=== PATIENT | male | born 1935 | race Caucasian/White ===

== ENCOUNTER 2017-07-24 08:36 | Inpatient (IN) | payer MEDICARE, OTHER ==
[2017-07-24] MEDS: ONDANSETRON 4 MG INJ IV (09:26)
[2017-07-24] MEDS: morphine 4 MG/ML VIAL IV ×2 (09:26→13:05)
[2017-07-24] MEDS: SOD CHLORIDE 0.9% 500 ML IV (09:29)
[2017-07-24 09:34] LABS: ADD MAN DIFF? NO
[2017-07-24 09:37] LABS: WHITE BLOOD COUNT 10.5 10^3/ul (4.8-10.8)
[2017-07-24 09:37] LABS: BASOPHILS % 0.4 % (0.0-2.0); EOSINOPHILS % 0.1 % (0.0-7.0); HEMOGLOBIN 12.4 g/dl (14.0-18.0); LYMPHOCYTES % 9.3 % (15.0-51.0); MEAN CORPUSCULAR HEMOGLOBIN 31.2 pg (29.0-33.0); MEAN CORPUSCULAR HGB CONC 33.5 g/dl (32.0-37.0); MONOCYTE # 0.3 10^3/ul (0.3-0.9); MONOCYTES % 2.4 % (0.0-11.0); NEUTROPHIL # 9.2 10^3/ul (1.6-7.5); NEUTROPHILS % 87.4 % (39.0-77.0); PLATELET COUNT 183 10^3/UL (140-415); RED BLOOD COUNT 3.98 10^6/ul (4.70-6.10)
[2017-07-24 09:41] LABS: ADD UMIC NO; UR ASCORBIC ACID NEGATIVE (NEGATIVE); UR BILIRUBIN (Dip) NEGATIVE (NEGATIVE); UR BLOOD (Dip) NEGATIVE (NEGATIVE); UR CLARITY CLEAR (CLEAR); UR COLOR STRAW (YELLOW); UR GLUCOSE (Dip) 2+ mg/dL (NEGATIVE); UR KETONES (Dip) NEGATIVE (NEGATIVE); UR LEUKOCYTE ESTERASE (Dip) NEGATIVE Leu/ul (NEGATIVE); UR NITRITE (Dip) NEGATIVE (NEGATIVE); UR SPECIFIC GRAVITY (Dip) 1.014 (1.003-1.030); UR TOTAL PROTEIN (Dip) NEGATIVE (NEGATIVE); UR UROBILINOGEN (Dip) NEGATIVE (NEGATIVE)
[2017-07-24 09:59] LABS: INR 0.94; PROTIME 12.7 Sec (11.9-14.9)
[2017-07-24 10:01] LABS: ALANINE AMINOTRANSFERASE 24 IU/L (13-69); ALBUMIN 4.8 g/dl (3.3-4.9); ALBUMIN/GLOBULIN RATIO 1.33; ALKALINE PHOSPHATASE 42 IU/L (42-121); ANION GAP 21 (8-16); ASPARTATE AMINO TRANSFERASE 21 IU/L (15-46); BILIRUBIN,INDIRECT 0.3 mg/dl (0-1.1); BILIRUBIN,TOTAL 0.3 mg/dl (0.2-1.3); BLOOD UREA NITROGEN 25 mg/dl (7-20); CALCIUM 9.7 mg/dl (8.4-10.2); CARBON DIOXIDE 22 mmol/L (21-31); CHLORIDE 107 mmol/L (97-110); CREATININE 1.29 mg/dl (0.61-1.24); GLUCOSE 160 mg/dl (70-220); LIPASE 83 U/L (23-300); POTASSIUM 3.9 mmol/L (3.5-5.1); SODIUM 146 mmol/L (135-144); TOTAL PROTEIN 8.4 g/dl (6.1-8.1)
[2017-07-24 10:16] LABS: TROPONIN-I < 0.012 ng/ml (0.00-0.12)
[2017-07-24] MEDS: AMPICILLIN/SULB 3 GM/NS (PMX) 100 ML IVPB (12:07)
[2017-07-24] MEDS ORDERED: ACETAMINOPHEN 325 MG TAB PO ×2 (12:30→13:00)
[2017-07-24] MEDS ORDERED: ONDANSETRON 4 MG INJ IV ×2 (12:30→13:00)
[2017-07-24] MEDS ORDERED: morphine 2 MG INJ IV (13:00)
[2017-07-24] MEDS ORDERED: HYDROCODONE/APAP (5/325) TAB PO (13:00)
[2017-07-24] MEDS ORDERED: ACETAMINOPHEN 650 MG SUPP PR (13:00)
[2017-07-24] MEDS ORDERED: NACL 0.9% 3 ML SYG IV (13:00)
[2017-07-24] MEDS ORDERED: MAGNESIUM HYDROXIDE 30ML CUP PO (13:00)
[2017-07-24] MEDS ORDERED: BISACODYL 10 MG SUPP PR (13:00)
[2017-07-24] MEDS: SOD CHLORIDE 0.9% 1,000 ML IV ×2 (14:00→22:57)
[2017-07-24] MEDS ORDERED: hydrALAzine 20 MG INJ IV (14:30)
[2017-07-24] MEDS: HYDROmorphONE 0.5 MG/0.5 ML SYG IV ×3 (15:26→20:57)
[2017-07-24 16:38] LABS: ALANINE AMINOTRANSFERASE 22 IU/L (13-69); ALBUMIN 4.9 g/dl (3.3-4.9); ALKALINE PHOSPHATASE 42 IU/L (42-121); ASPARTATE AMINO TRANSFERASE 30 IU/L (15-46); BILIRUBIN,INDIRECT 0.5 mg/dl (0-1.1); BILIRUBIN,TOTAL 0.5 mg/dl (0.2-1.3); TOTAL PROTEIN 8.7 g/dl (6.1-8.1)
[2017-07-24] MEDS: HYDROCODONE/APAP (5/325) TAB PO (23:11)
[2017-07-25] MEDS: HYDROCODONE/APAP (5/325) TAB PO (01:14)
[2017-07-25 05:38] LABS: ADD MAN DIFF? NO
[2017-07-25 05:40] LABS: WHITE BLOOD COUNT 13.9 10^3/ul (4.8-10.8)
[2017-07-25 05:40] LABS: BASOPHILS % 0.3 % (0.0-2.0); EOSINOPHILS % 0.1 % (0.0-7.0); HEMATOCRIT 33.6 % (42.0-52.0); HEMOGLOBIN 11.2 g/dl (14.0-18.0); LYMPHOCYTES # 1.1 10^3/ul (0.8-2.9); LYMPHOCYTES % 8.1 % (15.0-51.0); MEAN CORPUSCULAR HEMOGLOBIN 30.8 pg (29.0-33.0); MEAN CORPUSCULAR HGB CONC 33.3 g/dl (32.0-37.0); MEAN CORPUSCULAR VOLUME 92.3 fl (82.0-101.0); MEAN PLATELET VOLUME 11.2 fl (7.4-10.4); MONOCYTE # 0.7 10^3/ul (0.3-0.9); MONOCYTES % 5.1 % (0.0-11.0); PLATELET COUNT 157 10^3/UL (140-415); RED BLOOD COUNT 3.64 10^6/ul (4.70-6.10); RED CELL DISTRIBUTION WIDTH 13.2 % (11.5-14.5)
[2017-07-25] MEDS: PANTOPRAZOLE 40 MG INJ IV (05:47)
[2017-07-25 06:00] LABS: INR 1.27; PROTIME 16.1 Sec (11.9-14.9); PT RATIO 1.3
[2017-07-25 06:01] LABS: PARTIAL THROMBOPLASTIN TIME 40.7 Sec (25.0-35.0)
[2017-07-25 06:03] LABS: LACTIC ACID 1.4 mmol/L (0.5-2.0)
[2017-07-25 06:03] LABS: ALANINE AMINOTRANSFERASE 26 IU/L (13-69); ALBUMIN 3.3 g/dl (3.3-4.9); ALBUMIN/GLOBULIN RATIO 1.06; ALKALINE PHOSPHATASE 32 IU/L (42-121); ANION GAP 15 (8-16); ASPARTATE AMINO TRANSFERASE 21 IU/L (15-46); BILIRUBIN,INDIRECT 0.4 mg/dl (0-1.1); BILIRUBIN,TOTAL 0.4 mg/dl (0.2-1.3); BLOOD UREA NITROGEN 21 mg/dl (7-20); CALCIUM 8.5 mg/dl (8.4-10.2); CARBON DIOXIDE 24 mmol/L (21-31); CHLORIDE 109 mmol/L (97-110); CHOL/HDL RATIO 1.7 RATIO; CHOLESTEROL 103 mg/dl (100-200); CREATININE 1.28 mg/dl (0.61-1.24); GLUCOSE 121 mg/dl (70-220); HDL CHOLESTEROL 58 mg/dl (31-75); LDL CHOLESTEROL,CALCULATED 32 mg/dl; MAGNESIUM 1.8 mg/dl (1.7-2.5); PHOSPHORUS 2.9 mg/dl (2.5-4.9); POTASSIUM 3.6 mmol/L (3.5-5.1); SODIUM 144 mmol/L (135-144); TOTAL PROTEIN 6.4 g/dl (6.1-8.1); TRIGLYCERIDES 67 mg/dl (0-149)
[2017-07-25 06:07] LABS: B-TYPE NATRIURETIC PEPTIDE 1000 PG/ML (0-450)
[2017-07-25 06:15] LABS: FREE THYROXINE INDEX (Calc) 2.61 ug/ml (0.65-3.89); T3 UPTAKE 39.6 % (23.5-40.5); T4 (THYROXINE) 6.6 ug/dl (5.5-11.0)
[2017-07-25 06:21] LABS: CALCIUM 8.3 mg/dl (8.4-10.2)
[2017-07-25 06:29] LABS: THYROID STIMULATING HORMONE 0.199 MIU/L (0.465-4.680)
[2017-07-25] MEDS ORDERED: SUGAMMADEX SODIUM 200 MG/2 ML VIAL IV (07:00)
[2017-07-25] MEDS ORDERED: METOCLOPRAMIDE 10 MG INJ (07:00)
[2017-07-25 07:20] LABS: HEMOGLOBIN A1C 5.9 % (0-5.9)
[2017-07-25] MEDS: SOD CHLORIDE 0.9% 1,000 ML IV ×3 (08:16→18:57)
[2017-07-25] MEDS: HYDROmorphONE 0.5 MG/0.5 ML SYG IV (12:36)
[2017-07-25] MEDS ORDERED: LIDOCAINE 1%/EPI 30 ML INJ (16:11)
[2017-07-25] MEDS ORDERED: FENTAnyl 50 MCG/ML VIAL (17:22)
[2017-07-25] MEDS ORDERED: ROCURONIUM 50 MG INJ (17:25)
[2017-07-25] MEDS ORDERED: LIDOCAINE 2% (SDV) 5 ML INJ (17:25)
[2017-07-25] MEDS ORDERED: ETOMIDATE 20 MG INJ (17:25)
[2017-07-25] MEDS ORDERED: SUCCINYLCHOLINE CHLORIDE 100 MG/5 ML SYG IV (17:26)
[2017-07-25] MEDS: BUPIVACAINE 0.25% (MPF) 30 ML INJ (18:00)
[2017-07-25] MEDS ORDERED: ONDANSETRON 4 MG INJ (18:47)
[2017-07-25] MEDS ORDERED: LABETALOL HCL 20MG INJ (19:05)
[2017-07-25] MEDS: LABETALOL HCL 20MG INJ IV (19:14)
[2017-07-25] MEDS ORDERED: ALBUTEROL 0.083% (NEB) 2.5 MG/3 ML AMP (19:19)
[2017-07-25] MEDS ORDERED: FUROSEMIDE 20 MG INJ (19:23)
[2017-07-25] MEDS: ALBUTEROL 0.083% (NEB) 2.5 MG/3 ML AMP HHN (19:30)
[2017-07-25] MEDS ORDERED: BISACODYL 10 MG SUPP PR (19:30)
[2017-07-25] MEDS ORDERED: HYDROmorphONE 0.5 MG/0.5 ML SYG IV (19:30)
[2017-07-25] MEDS ORDERED: ONDANSETRON 4 MG INJ IV (19:30)
[2017-07-25] MEDS ORDERED: hydrALAzine 20 MG INJ IV (19:30)
[2017-07-25] MEDS ORDERED: HYDROmorphONE (0.2 MG/ML) 10ML SYG IV (19:30)
[2017-07-25] MEDS ORDERED: DOCUSATE SODIUM 100 MG CAP PO (19:30)
[2017-07-25] MEDS ORDERED: FENTAnyl 50 MCG/ML VIAL IV ×2 (19:30)
[2017-07-25] MEDS ORDERED: NA PHOSPHATE/BIPHOS 133 ML ENEMA PR (19:30)
[2017-07-25] MEDS: FUROSEMIDE 20 MG INJ IV (19:40)
[2017-07-25] MEDS: HYDROmorphONE (0.2 MG/ML) 10ML SYG IV (19:52)
[2017-07-25] MEDS ORDERED: hydrALAzine 20 MG INJ (19:53)
[2017-07-25] MEDS ORDERED: METOPROLOL 5 MG INJ (19:54)
[2017-07-25] MEDS ORDERED: MIDAZOLAM 1 MG/ML 2 ML INJ (19:54)
[2017-07-25] MEDS: ALBUTEROL/IPRATROPIUM (NEB) 3 ML AMP HHN (20:05)
[2017-07-25 20:32] LABS: AADO2 Arterial 203.4 mmHg (7.0-24.0); Arterial Base Excess -4.9 mmol/L (-3.0-3); Arterial Blood Gas Oxygen Sat 97.9 mmHG (95.0-100.0); Arterial COHb 0.2 % (0.0-3.0); Arterial Fraction of Oxyhgb 97.4 % (93.0-99.0); Arterial HCO3 22.5 mmol/L (22.0-26.0); Arterial MetHb 0.3 % (0.0-1.5); Arterial Total Hemglobin 12.7 g/dl (12.0-18.0); Arterial pCO2 51.7 mmhg (35-45); MODE SIMPLE MASK; Site Right Brachial
[2017-07-25 20:36] LABS: ADD MAN DIFF? NO
[2017-07-25 20:39] LABS: WHITE BLOOD COUNT 13.5 10^3/ul (4.8-10.8)
[2017-07-25 20:39] LABS: BASOPHILS % 0.3 % (0.0-2.0); EOSINOPHILS % 0.2 % (0.0-7.0); HEMATOCRIT 36.9 % (42.0-52.0); HEMOGLOBIN 11.9 g/dl (14.0-18.0); LYMPHOCYTES # 1.5 10^3/ul (0.8-2.9); LYMPHOCYTES % 10.7 % (15.0-51.0); MEAN CORPUSCULAR HEMOGLOBIN 30.7 pg (29.0-33.0); MEAN CORPUSCULAR HGB CONC 32.2 g/dl (32.0-37.0); MEAN CORPUSCULAR VOLUME 95.3 fl (82.0-101.0); MEAN PLATELET VOLUME 10.5 fl (7.4-10.4); MONOCYTE # 0.7 10^3/ul (0.3-0.9); MONOCYTES % 4.8 % (0.0-11.0); NEUTROPHIL # 11.3 10^3/ul (1.6-7.5); NEUTROPHILS % 83.3 % (39.0-77.0); PLATELET COUNT 147 10^3/UL (140-415); RED BLOOD COUNT 3.87 10^6/ul (4.70-6.10); RED CELL DISTRIBUTION WIDTH 13.5 % (11.5-14.5)
[2017-07-25 20:57] LABS: PHOSPHORUS 3.5 mg/dl (2.5-4.9)
[2017-07-25 20:57] LABS: ALANINE AMINOTRANSFERASE 50 IU/L (13-69); ALBUMIN 3.6 g/dl (3.3-4.9); ALKALINE PHOSPHATASE 37 IU/L (42-121); ANION GAP 15 (8-16); ASPARTATE AMINO TRANSFERASE 62 IU/L (15-46); BILIRUBIN,INDIRECT 0.4 mg/dl (0-1.1); BILIRUBIN,TOTAL 0.4 mg/dl (0.2-1.3); BLOOD UREA NITROGEN 19 mg/dl (7-20); CALCIUM 8.4 mg/dl (8.4-10.2); CARBON DIOXIDE 25 mmol/L (21-31); CHLORIDE 107 mmol/L (97-110); CREATININE 1.35 mg/dl (0.61-1.24); GLUCOSE 149 mg/dl (70-220); INR 1.24; MAGNESIUM 1.9 mg/dl (1.7-2.5); POTASSIUM 3.7 mmol/L (3.5-5.1); PROTIME 15.8 Sec (11.9-14.9); PT RATIO 1.2; SODIUM 143 mmol/L (135-144); TOTAL PROTEIN 6.6 g/dl (6.1-8.1)
[2017-07-25 20:58] LABS: PARTIAL THROMBOPLASTIN TIME 43.3 Sec (25.0-35.0)
[2017-07-25 21:08] LABS: TROPONIN-I 0.095 ng/ml (0.00-0.12)
[2017-07-25] MEDS: IPRATROPIUM (NEB) 0.5 MG/2.5 ML AMP HHN (21:09)
[2017-07-25] MEDS: morphine 2 MG INJ IV (23:01)
[2017-07-25 23:58] LABS: AADO2 Arterial 170.4 mmHg (7.0-24.0); Allen Test ACCEPTAB; Arterial Base Excess -1.5 mmol/L (-3.0-3); Arterial Blood Gas Oxygen Sat 93.1 mmHG (95.0-100.0); Arterial COHb 0.5 % (0.0-3.0); Arterial Fraction of Oxyhgb 92.4 % (93.0-99.0); Arterial HCO3 22.9 mmol/L (22.0-26.0); Arterial MetHb 0.2 % (0.0-1.5); Arterial Total Hemglobin 13.4 g/dl (12.0-18.0); Arterial pCO2 37.4 mmhg (35-45); MODE NASAL CANNULA; Site Right Radial
[2017-07-26 03:52] LABS: WHITE BLOOD COUNT 13.5 10^3/ul (4.8-10.8)
[2017-07-26 03:52] LABS: ADD MAN DIFF? NO; BASOPHILS % 0.3 % (0.0-2.0); EOSINOPHILS % 0.2 % (0.0-7.0); HEMOGLOBIN 12.1 g/dl (14.0-18.0); LYMPHOCYTES # 1.2 10^3/ul (0.8-2.9); LYMPHOCYTES % 8.7 % (15.0-51.0); MEAN CORPUSCULAR HEMOGLOBIN 30.5 pg (29.0-33.0); MEAN CORPUSCULAR HGB CONC 32.7 g/dl (32.0-37.0); MEAN CORPUSCULAR VOLUME 93.2 fl (82.0-101.0); MEAN PLATELET VOLUME 10.7 fl (7.4-10.4); MONOCYTE # 0.8 10^3/ul (0.3-0.9); MONOCYTES % 6.1 % (0.0-11.0); NEUTROPHIL # 11.4 10^3/ul (1.6-7.5); NEUTROPHILS % 84.2 % (39.0-77.0); PLATELET COUNT 139 10^3/UL (140-415); RED BLOOD COUNT 3.97 10^6/ul (4.70-6.10); RED CELL DISTRIBUTION WIDTH 13.5 % (11.5-14.5)
[2017-07-26] MEDS: morphine 2 MG INJ IV (04:03)
[2017-07-26 04:12] LABS: LACTIC ACID 1.9 mmol/L (0.5-2.0)
[2017-07-26 04:15] LABS: ALANINE AMINOTRANSFERASE 56 IU/L (13-69); ALBUMIN/GLOBULIN RATIO 1.14; ALKALINE PHOSPHATASE 42 IU/L (42-121); ANION GAP 17 (8-16); ASPARTATE AMINO TRANSFERASE 74 IU/L (15-46); BILIRUBIN,INDIRECT 0.6 mg/dl (0-1.1); BILIRUBIN,TOTAL 0.6 mg/dl (0.2-1.3); BLOOD UREA NITROGEN 19 mg/dl (7-20); CALCIUM 8.6 mg/dl (8.4-10.2); CARBON DIOXIDE 27 mmol/L (21-31); CHLORIDE 107 mmol/L (97-110); CREATININE 1.36 mg/dl (0.61-1.24); GLUCOSE 138 mg/dl (70-220); POTASSIUM 3.6 mmol/L (3.5-5.1); SODIUM 147 mmol/L (135-144); TOTAL PROTEIN 7.5 g/dl (6.1-8.1)
[2017-07-26 04:16] LABS: PHOSPHORUS 2.1 mg/dl (2.5-4.9)
[2017-07-26 04:16] LABS: MAGNESIUM 1.9 mg/dl (1.7-2.5)
[2017-07-26 04:20] LABS: B-TYPE NATRIURETIC PEPTIDE 1780 PG/ML (0-450)
[2017-07-26 04:28] LABS: PT RATIO 1.4
[2017-07-26 04:29] LABS: PARTIAL THROMBOPLASTIN TIME 38.6 Sec (25.0-35.0)
[2017-07-26 04:30] LABS: TROPONIN-I 0.257 ng/ml (0.00-0.12)
[2017-07-26] MEDS: PANTOPRAZOLE 40 MG INJ IV (05:16)
[2017-07-26 05:17] LABS: INR 1.28; PROTIME 16.3 Sec (11.9-14.9)
[2017-07-26 07:20] LABS: CREATINE KINASE 982 IU/L (23-200)
[2017-07-26 07:32] LABS: CK INDEX 0.2
[2017-07-26 07:35] LABS: CK-MB 2.42 ng/ml (0.0-2.4); TROPONIN-I 0.202 ng/ml (0.00-0.12)
[2017-07-26] MEDS: HYDROmorphONE 0.5 MG/0.5 ML SYG IV (09:02)
[2017-07-26] MEDS: ASPIRIN 81 MG TAB PO (09:02)
[2017-07-26] MEDS: ENOXAPARIN 40 MG/0.4 ML SYG SC (09:03)
[2017-07-26 12:36] LABS: CREATINE KINASE 758 IU/L (23-200)
[2017-07-26 12:50] LABS: CK INDEX 0.2; TROPONIN-I 0.095 ng/ml (0.00-0.12)
[2017-07-26] MEDS: METOPROLOL 25 MG TAB PO ×2 (13:06→20:07)
[2017-07-26] MEDS: HYDROCODONE/APAP (5/325) TAB PO ×2 (16:15→20:07)
[2017-07-26 18:36] LABS: CREATINE KINASE 661 IU/L (23-200)
[2017-07-26 18:49] LABS: CK INDEX 0.2; TROPONIN-I 0.059 ng/ml (0.00-0.12)
[2017-07-26 18:55] LABS: CK-MB 1.42 ng/ml (0.0-2.4)
[2017-07-26] MEDS: ATORVASTATIN 40 MG TAB PO (20:07)
[2017-07-27] MEDS: DOCUSATE SODIUM 100 MG CAP PO (05:35)
[2017-07-27] MEDS: PANTOPRAZOLE 40 MG INJ IV (05:35)
[2017-07-27 07:48] LABS: ADD MAN DIFF? NO
[2017-07-27 07:52] LABS: BASOPHILS % 0.1 % (0.0-2.0); EOSINOPHILS # 0.3 10^3/ul (0.0-0.5); EOSINOPHILS % 2.9 % (0.0-7.0); HEMOGLOBIN 10.2 g/dl (14.0-18.0); LYMPHOCYTES # 1.2 10^3/ul (0.8-2.9); MEAN CORPUSCULAR HEMOGLOBIN 30.7 pg (29.0-33.0); MEAN CORPUSCULAR HGB CONC 32.9 g/dl (32.0-37.0); MEAN CORPUSCULAR VOLUME 93.4 fl (82.0-101.0); MEAN PLATELET VOLUME 11.2 fl (7.4-10.4); MONOCYTE # 0.7 10^3/ul (0.3-0.9); MONOCYTES % 7.1 % (0.0-11.0); NEUTROPHIL # 7.6 10^3/ul (1.6-7.5); NEUTROPHILS % 77.4 % (39.0-77.0); PLATELET COUNT 132 10^3/UL (140-415); POSITIVE DIFF @See below; RED BLOOD COUNT 3.32 10^6/ul (4.70-6.10); RED CELL DISTRIBUTION WIDTH 13.3 % (11.5-14.5)
[2017-07-27 07:52] LABS: WHITE BLOOD COUNT 9.8 10^3/ul (4.8-10.8)
[2017-07-27 08:14] LABS: ALANINE AMINOTRANSFERASE 48 IU/L (13-69); ALBUMIN 2.9 g/dl (3.3-4.9); ALBUMIN/GLOBULIN RATIO 1.07; ALKALINE PHOSPHATASE 44 IU/L (42-121); ANION GAP 11 (8-16); ASPARTATE AMINO TRANSFERASE 44 IU/L (15-46); BILIRUBIN,INDIRECT 0.4 mg/dl (0-1.1); BILIRUBIN,TOTAL 0.4 mg/dl (0.2-1.3); BLOOD UREA NITROGEN 23 mg/dl (7-20); CARBON DIOXIDE 28 mmol/L (21-31); CHLORIDE 107 mmol/L (97-110); GLUCOSE 132 mg/dl (70-220); POTASSIUM 3.5 mmol/L (3.5-5.1); SODIUM 142 mmol/L (135-144); TOTAL PROTEIN 5.6 g/dl (6.1-8.1)
[2017-07-27 08:17] LABS: PHOSPHORUS 1.4 mg/dl (2.5-4.9)
[2017-07-27 08:17] LABS: MAGNESIUM 2.3 mg/dl (1.7-2.5)
[2017-07-27] MEDS: ASPIRIN 81 MG TAB PO (08:31)
[2017-07-27] MEDS: METOPROLOL 25 MG TAB PO (08:31)
[2017-07-27] MEDS: ENOXAPARIN 40 MG/0.4 ML SYG SC (08:37)
[2017-07-27] MEDS: REGADENOSON 0.4 MG/5 ML SYG (10:45)
[2017-07-27] MEDS: POTASSIUM CHLORIDE (SR) 20 MEQ TAB PO (12:42)
[2017-07-27] MEDS: POTASSIUM PHOSPHATE 30 MM in SOD CHLORIDE 0.9% 250 ML IVPB (12:43)
[2017-07-27] MEDS: HYDROCODONE/APAP (5/325) TAB PO (13:22)
== END 2017-07-27 18:53 | disposition home health service (06) | DRG 418 ==
LOC: MS3 07-25 07:40 → E/R 08:36 → MS3 12:14 → MS4 07-25 21:25
PROC: 0FT44ZZ Resection of Gallbladder, Percutaneous Endoscopic Approach (ICD-10-PCS; principal; 2017-07-25 14:30)
PROC: 4A033R1 Measurement of Arterial Saturation, Peripheral, Percutaneous Approach (ICD-10-PCS; 2017-07-25 15:59)
DX: K80.12 Calculus of gallbladder with acute and chronic cholecystitis without obstruction (principal); N17.9 Acute kidney failure, unspecified; I10 Essential (primary) hypertension; E78.00 Pure hypercholesterolemia, unspecified; R74.8 Abnormal levels of other serum enzymes; I51.7 Cardiomegaly; K57.30 Diverticulosis of large intestine without perforation or abscess without bleeding; Z86.73 Personal history of transient ischemic attack (TIA), and cerebral infarction without residual deficits
CPT/HCPCS: 36415; 36600; 71045; 74176; 76705; 78226; 78452; 80053; 80061; 80076; 81003; 82310; 82550; 82553; 82803; 82962; 83036; 83605; 83690; 83735; 83880; 84100; 84436; 84443; 84479; 84484; 85025; 85610; 85730; 86850; 86900; 86901; 88304; 93005; 93017; 93306; 93970; 94640; 94664; 96374; 96375; 96376; 99285-25

== ENCOUNTER 2017-08-06 10:08 | Outpatient (CLI) | payer MEDICARE, OTHER | END 2017-08-06 15:30 | disposition home or self-care (01) | LOC: HPC 10:08 | DX: K80.10 Calculus of gallbladder with chronic cholecystitis without obstruction (principal) | CPT/HCPCS: G0463 ==